=== PATIENT | female | born 1985 | race Caucasian/White ===

== ENCOUNTER 2019-12-16 04:04 | Emergency (ER) | payer OTHER ==
[~2019-12-16] VITALS: Ht 162.6 cm; Wt 90.7 kg
[2019-12-16] MEDS ORDERED: TRAZ50 PO (08:34)
[2019-12-16] MEDS ORDERED: Prinivil10 MG PO (08:34)
[2019-12-16] MEDS ORDERED: OMEP20ER (08:34)
== END 2019-12-16 04:21 | disposition home or self-care (01) ==
LOC: ER 04:04
DX: F15.10 Other stimulant abuse, uncomplicated (principal); F17.200 Nicotine dependence, unspecified, uncomplicated
CPT/HCPCS: 99284

== ENCOUNTER 2019-12-16 07:39 | Observation (INO) | payer OTHER ==
[~2019-12-16] VITALS: Ht 157.5 cm; Wt 72.6 kg
[2019-12-16] MEDS ORDERED: OMEP20ER (08:34)
[2019-12-16] MEDS ORDERED: TRAZ50 PO (08:34)
[2019-12-16] MEDS ORDERED: Prinivil10 MG PO (08:34)
== END 2019-12-16 16:12 | disposition home or self-care (01) ==
LOC: ER 07:39 → EOR 07:40
PROVIDERS: ADMIT Emergency Medicine
DX: F15.10 Other stimulant abuse, uncomplicated (principal); F17.200 Nicotine dependence, unspecified, uncomplicated; Z88.0 Allergy status to penicillin; Z88.2 Allergy status to sulfonamides; Z88.8 Allergy status to other drugs, medicaments and biological substances; Z91.038 Other insect allergy status; Z91.040 Latex allergy status
CPT/HCPCS: 99285; G0378